=== PATIENT | female | born 1950 | race Caucasian/White ===

== ENCOUNTER 2020-01-02 21:04 | Emergency (ER) | payer MEDICARE, OTHER ==
[~2020-01-02] VITALS: Ht 165.1 cm; Wt 49.9 kg
[2020-01-02] MEDS ORDERED: SYNTHROID112 MC1 PO (21:15)
[2020-01-02] MEDS ORDERED: FOSAMAX 70 MG T70 MG PO (21:15)
[2020-01-02 22:00] VITALS: BP 157/80
== END 2020-01-02 22:00 | disposition home or self-care (01) ==
LOC: M.ERS 21:04
DX: S61.211A Laceration without foreign body of left index finger without damage to nail, initial encounter (principal); S61.213A Laceration without foreign body of left middle finger without damage to nail, initial encounter; E03.9 Hypothyroidism, unspecified; W26.8XXA Contact with other sharp object(s), not elsewhere classified, initial encounter; Y93.89 Activity, other specified; Y92.89 Other specified places as the place of occurrence of the external cause; Y99.8 Other external cause status